=== PATIENT | female | born 1995 | race Caucasian/White ===

== ENCOUNTER 2025-05-25 14:39 | Outpatient (REF) | payer MEDICAID, SELFPAY ==
--- OUTSIDE RECORDS SUMMARY | 2025-05-25 13:00 | XMS_ITS | Encounter Summary ---
Author Organization [facility] Address [address] [place] [address] Care Team Providers Care Forming Roll Operator Name Role Phone Jesica Donahue NP Primary Care Provider [phone] Reason for Referral * Consultation (Routine) - Pending Review Specialty Diagnoses / Procedures Referred By Jeff lopez Referred To Contact Cardiology Diagnoses Vasovagal syncope Jesica Donahue NP [address] [place] [address] Phone: tel: fax: Referral ID Status Reason Start Date Expiration Date Visits Requested Visits Authorized [id number] Pending Review Specialty Services Required 05/25/2025 05/25/2026 1 1 Encounter Details Date Type Department Care Team (Late st Contact Info) Description 05/25/2025 1:00 PM EDT Office Visit [facility] [address], [place] [phone] Jesica Donahue NP [address] [place] [address] Vasovagal syncope (Primary Dx); Nausea Social History Tobacco Use Types Packs/Day Years Used Date Smoking Tobacco: Every Day Cigarettes Tobacco Cessation:Ready to Q uit: Not Asked; Counseling Given: Not Answered Alcohol Answer Date Recorded How often do you have a drink containing alcohol ? 3 05/25/2025 How many drinks containing a lcohol do you have on a typical day when you are drinking? 2 05/25/2025 How often do you have six or more drinks on one occasion? 2 05/25/2025 Housing Stability Answer Date Recorded What is your housing situation today? I do not have housing (Staying with others, in a hotel, in a longterm, living outside on the street, on a beach, in a car, or in a park 05/25/[address] you li ve. Do you have problems with any of the following? I am not sure 05/25/2025 Food Insecurity Answer Date Recorded Within the past 12 months, y ou worried that your food would run out before you got money to buy more: Sometimes True 2024 Within the past 12 months,th e food you bought just didn't last and you didn't have enough money to get more: Sometimes True 05/25/2025 Transportation Answer Date Recorded In the past 12 months, has l ack of transportation kept you from medical appts, meetings, work or from getting things needed for daily living? Yes, it has kept me from medical appointments or getting medications.;Yes, it has kept me from non-medical meetings, work, or getting things that I need 05/25/2025 Utilities Answer Date Recorded In the past 12 months, has t he electric, gas, oil or water company threatened to shut off services in your home? I am not sure 05/25/2025 Depression Answer Date Recorded Patient Health Questionnaire-2 Score 3 05/25/2025 Internet Access Answer Date Recorded Internet Access Q1 Yes 05/25/2025 Internet Access Q2 Not on file 05/25/2025 Comments Unknown Sex and Gender Information Value Date Recorded Sex Assigned at Female 08/27/2022 10:35 AM EDT Legal Sex Female 10:35 AM EDT Gender Identity Female 05/25/2025 11:52 AM EDT Sexual Orientation Straight 05/25/2025 11 :52 AM EDT documented as of this encounter Last Filed Vital Signs Vital Sign Reading Time Taken Comments Blood Pressure 120/80 05/25/2025 1:18 PM EDT Pulse 72 05/25/2025 1:18 PM EDT Temperature 36.1 C (97 F) 05/25/2025 1:18 PM EDT Respiratory Rate 16 05/25/2025 1:18 PM EDT Oxygen Saturation 97% 05/25/2025 1:18 PM EDT Inhaled Oxygen Concentration - - Weight 100 kg (221 lb 6.4 oz) 05/25/2025 1:18 PM EDT Height 175.3 cm (5' 9 ) 05/25/2025 1:18 PM EDT Body Mass Index 32.7 05/25/2025 1:18 PM EDT documented in this encounter Functional Status * Over the past 2 weeks, how often have you been bothered by any of the following problems? Question Answer Date of Assessment Author Patient Health Questionnaire -2 Score 3 05/25/2025 2:24 PM EDT Angel Sylvester MA * Little interest or pleasure in doing things Answer Date of Assessment Author Several days 05/25/2025 2:24 PM EDT Rio Sylvester MA * Feeling down, depressed, or hopeless Answer Date of Assessment Author More than half the days 05/25/2025 2:24 PM EDT Rio Garcia MA * Trouble falling or staying asleep, or sleeping too much Answer Date of Assessment Author Nearly every day 05/25/2025 2:24 PM EDT Rio Sylvester MA * Poor appetite or overeating Answer Date of Assessment Author Several days 05/25/2025 2:24 PM EDT Rio Sylvester MA * Feeling bad about yourself - or that you are a failure or have let yourself or your family down Answer Date of Assessment Author More than half the days 05/25/2025 2:24 PM EDT Rio Garcia MA * Trouble concentrating on things, such as reading the newspaper or watching television Answer Date of Assessment Author Not at all 05/25/2025 2:24 PM EDT Rio Sylvester MA * Moving or speaking so slowly that other people could have noticed? Or the opposite - being so fidgety or restless that you have been moving around a lot more than usual. Answer Date of Assessment Author More than half the days 05/25/2025 2:24 PM EDT Rio Garcia MA * Thoughts that you would be better off or hurting yourself in some way Answer Date of Assessment Author More than half the days 05/25/2025 2:24 PM EDT I Rio goldberg MA * Over the last 2 weeks, how often have you been bothered by any of the following problems? Question Answer Date of Assessment Author Feeling nervous, anxious, or on edge 2 05/25/2025 2:24 PM EDT Angel Sylvester MA Not being able to stop or control worrying 2 05/25/2025 2:24 PM EDT Angel Sylvester MA Worrying too much about different things 3 05/25/2025 2:24 PM EDT Angel Sylvester MA Trouble relaxing 3 05/25/2025 2:24 PM EDT I Rio goldberg MA Being so restless that it is hard to sit still 2 05/25/2025 2:24 PM EDT Angel Sylvester MA Becoming easily annoyed or irritable 2 05/25/2025 2:24 PM EDT Angel Sylvester MA Feeling afraid as if somethi ng awful might happen 1 05/25/2025 2:24 PM EDT Angel Sylvester MA MARY-7 Total Score 15 05/25/2025 2:24 PM EDT Rio Sylvester MA documented as of this encounter Plan of Treatment Upcoming Encounters Date Type Department Care Team (Late st Contact Info) Description 07/16/2025 1:30 PM EDT Office Visit [facility] [address] [place] [address] Jesica Donahue NP [address] [place] [address] Scheduled Orders Name Type Priority Associated Diagnoses Orde r Schedule CBC auto differential Lab Routine Vasovagal syncope Expected: 05/25/2025 (Approximate), Expires: 05/25/2026 TSH W/Reflex to FT4 Lab Routine Vasovagal syncope Expected: 05/25/2025 (Approximate), Expires: 05/25/2026 Hemoglobin A1c Lab Routine Vasovagal syncope Expected: 05/25/2025 (Approximate), Expires: 05/25/2026 Comprehensive Metabolic Panel Lab Routine Vasovagal syncope Expected: 05/25/2025 (Approximate), Expires: 05/25/2026 Scheduled Referrals Name Type Priority Associated Diagnoses Order Schedule Referral to Cardiology Outpatient Referral Routine Vasovagal syncope Expected: 05/25/2025 (Approximate), Expires: 05/25/2026 documented as of this encounter Procedures Procedure Name Priority Date/Time Associated Diagnosis Comments ECG 12-LEAD Routine 05/25/2025 1:25 PM EDT Vasovagal syncope documented in this encounter Results * ECG 12 lead (05/25/2025 1:25 PM EDT) us Jesica Donahue NP ECG ORDERABLES Final Result documented in this encounter Visit Diagnoses Diagnosis Vasovagal syncope- Primary Syncope and collapse Nausea Nausea alone documented in this encounter Care Teams Forming Roll Operator Relationship Specialty Start Date End Date Jesica Donahue NP [address] [place] [address] PCP - General Family Medicine 05/25/25 documented as of this encounter
--- OUTSIDE RECORDS SUMMARY | 2025-05-25 15:25 | XMS_ITS | Clinical Summary ---
Author Organization [facility] [place] [address] Care Team Providers Care Small Equipment Operator Name Role Phone Unavailable Primary Care Provider Unavailabl e Social History Tobacco Use Types Packs/Day Years Used Date Smoking Tobacco: Never Assessed Comments Unknown Sex and Gender Information Value Date Recorded Sex Assigned at Not on file Legal Sex Female 5:03 PM EST Gender Identity Not on file Sexual Orientation Not on file Plan of Treatment Health Maintenance Due Date Last Done Comments DTaP,Tdap,and Td Vaccines (1 - Tdap) 2015 Hepatitis B Vaccines (1 of 3 - 19+ 3-dose series) 2015 Cervical Cancer Screening: P ap Smear 2017 HIV Screening 09/26/2022 Hepatitis C Screening 09/26/2022 Social Influencers of Health Screening 09/26/2022 COVID-19 Vaccine ( - 2023-2 5 season) 2024 Depression Screening 10/28/2024 Influenza Vaccine (#1) 2025 HIB Vaccines Aged Out No longer eligi ble based on patient's age to complete this topic HPV Vaccines Aged Out No longer eligi ble based on patient's age to complete this topic Hepatitis A Vaccines Aged Out No long er eligible based on patient's age to complete this topic IPV Vaccines Aged Out No longer eligi ble based on patient's age to complete this topic MMR Vaccines Aged Out No longer eligi ble based on patient's age to complete this topic Meningococcal ACWY Vaccine Aged Out N o longer eligible based on patient's age to complete this topic Meningococcal B Vaccine Aged Out No l onger eligible based on patient's age to complete this topic Pneumococcal Vaccine: Pediat rics (0 to 5 Years) and At-Risk Patients (6 to 49 Years) Aged Out No longer eligible b ased on patient's age to complete this topic RSV Immunization Patients Un gentry 20 months Aged Out No longer eligible b ased on patient's age to complete this topic Varicella Vaccines Aged Out No longer eligible based on patient's age to complete this topic
[2025-05-25 16:09] LABS: MANUAL DIFF FLAG NO
[2025-05-25 16:27] LABS: Hematocrit 39.9 % (37.0-47.0); Hemoglobin 13.5 g/dl (12.0-16.0); Imm Gran Abs Auto 0.01 X10*3/uL (0.00-0.03); Imm Gran Pct Auto 0.2 % (0.0-0.4); Lymphocytes Absolute Auto 1.8 X10*3/uL (1.2-4.9); Mean Corpuscular HGB Conc 33.8 g/dl (31.0-35.0); Mean Corpuscular Hemoglobin 29.5 pg (27.0-33.0); Mean Corpuscular Volume 87.1 fL (80.0-98.0); NRBC Abs Auto 0.000 X10*3/uL (0.0-0.012); NRBC Pct Auto 0.0 /100WBC (0.0-0.2); Platelet Count 347 X10*3/uL (160-400); Red Blood Count 4.58 X10*6/uL (4.20-5.50); White Blood Count 5.2 X10*3/uL (4.8-10.8)
[2025-05-25 16:39] LABS: Hemoglobin A1C 101.0871 umol/L; Total Hemoglobin (HGBA1C) 3482.0981 umol/L
[2025-05-25 16:58] LABS: Alanine Aminotransferase 19 U/L (0-31); Albumin Level 5.0 g/dL (3.5-5.0); Alkaline Phosphatase 79 U/L (39-117); Anion Gap 14 (12-20); Aspartate Amino Transferase 26 U/L (5-31); Blood Urea Nitrogen 12 mg/dL (9-16); Calcium 9.5 mg/dL (8.4-10.2); Carbon Dioxide 22 mmol/L (22-29); Chloride 105 mmol/L (96-108); Estimated Glomerular Filt Rate > 60; Potassium 4.0 mmol/L (3.3-5.1); Sodium 137 mmol/L (135-145); Total Protein 8.2 g/dL (6.5-8.0)
== END 2025-05-25 14:40 | disposition home or self-care (01) ==
LOC: HO.HHCL 14:39
PROVIDERS: PCP Nurse Practitioner Family; Visit Provider Nurse Practitioner Family
DX: R55 Syncope and collapse (principal)
CPT/HCPCS: 36415; 80053; 83036; 84443; 85025